=== PATIENT | female | born 1955 | race American Indian/Alaskan Native ===

== ENCOUNTER → 2019-11-26 | Outpatient (CLI) | payer BC, OTHER ==
[~2019-11-26] MED LIST: ALLEGRA30 MG PO; BENADRYL25 MG PO; PREDNISONE; PREDNISONE 20 M20 MG PO
[2019-11-26 09:37] LABS: CREATININE 0.7 mg/dL (0.6-1.0)
== END ==
LOC: CAT 08:51
PROVIDERS: Family Medicine
DX: K42.9 Umbilical hernia without obstruction or gangrene (principal); Z90.49 Acquired absence of other specified parts of digestive tract

== ENCOUNTER 2020-04-28 15:04 | Emergency (ER) | payer BC, OTHER ==
[~2020-04-28] VITALS: Ht 152.4 cm; Wt 99.8 kg
[2020-04-28 15:40] LABS: ABSOLUTE NEUTROPHILS 8.4 thou/uL (1.4-8.2); BASOPHILS 1.3 % (0.0-2.0); EOSINOPHILS 1.2 % (0.0-3.0); HEMATOCRIT 41.7 % (37.0-47.0); HEMOGLOBIN 14.3 gm/dL (12.0-15.0); LYMPHOCYTES 17.6 % (24.0-44.0); MCH 29.6 pg (26.0-34.0); MCHC 34.4 g/dL (28.0-37.0); MCV 85.9 fL (80.0-100.0); MONOCYTES 4.6 % (1.0-8.0); PLATELET COUNT 265 thou/uL (150-400); POLYS 75.3 % (36.0-66.0); RBC 4.85 mil/uL (4.20-5.00); RDW 13.3 % (10.5-14.5); WBC 11.1 thou/uL (4.0-11.0)
[2020-04-28 15:48] LABS: CALCIUM 9.7 mg/dL (8.5-10.1); CREATININE 0.7 mg/dL (0.6-1.0); POTASSIUM 4.3 mmol/L (3.5-5.1)
[2020-04-28 15:54] LABS: ALBUMIN 3.9 g/dL (3.4-5.0); TOTAL BILIRUBIN 0.3 mg/dL (0.2-1.0)
--- NOTE | 2020-04-28 16:09 | EKG ---
[facility] [place] [address] [place] [address] ELECTROCARDIOGRAM REPORT Name: MESSI MALIN Room #: REG M.R.#: [id number] Admission: 04/28/20 Attend Phys: Discharge: Date of : 55 Report #: [id number] THIS REPORT FOR: cc: Jorge Cee James A. DO Couchonnal, Luis F. MD ~ THIS REPORT FOR: //name// [facility] ED Test Date: 2020-04-28 Test Time: 16:05:39 Pat Name: MESSI MALIN Department: Room: Gender: F [employer] Operator: Magdalena : 1955 Requested By: Babatunde Urrutia Order Number: [id number] MD: Jose Juan Joe Measurements Intervals [place] Rate: 70 P: 10 [place]: 145 QRS: -33 QRSD: 98 T: 58 QT: 386 QTc: 417 Interpretive Statements Sinus rhythm Left axis deviation Minimal ST elevation, anterior leads Baseline wander in lead(s) V6 No previous ECG available for comparison Electronically Signed On 04-28-2020 16:08:55 CDT by Jose Juan Joe [email or web address] <ELECTRONICALLY SIGNED> By: Jose Juan Joe MD 04/28/20 1608 1605 1605 Jose Juan Joe MD /[facility]
[2020-04-28 16:48] VITALS: BP 122/74
== END 2020-04-28 16:48 | disposition home or self-care (01) ==
LOC: ER 15:04
PROVIDERS: Emergency Medicine
DX: K42.9 Umbilical hernia without obstruction or gangrene (principal); Z90.710 Acquired absence of both cervix and uterus; Z79.899 Other long term (current) drug therapy